=== PATIENT | male | born 2005 | race Caucasian/White ===

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

== ENCOUNTER 2023-05-11 13:30 | Emergency (ER) | payer MEDICAID, SELFPAY ==
[2023-05-11 13:33] VITALS: BP 155/85; PULSE 80; RESP 20; TEMP 37.1; O2SAT 95
--- NOTE | 2023-05-11 13:41 | ED.GENADUL_ITS ---
Discharge Plan Disposition Patient Disposition: Home Condition: Stable Discharge Details Clinical Impression: Internal derangement of right knee Primary Care Provider: Unknown,Unknown ED Provider: David Donovan Home Meds and New Rx's Prescriptions: Continued amoxicillin-pot clavulanate 875-125 mg tablet 1 tab PO BID Qty: 20 0RF Discharge Instructions Instructions: Knee Sprain (ED), Meniscus Tear (ED) Additional Instructions: You were seen in the emergency department for your chronic knee sprain with intermittent symptoms consistent with a possible meniscus tear. The definitive diagnosis for this is arthroscopy or MRI. You need to see an outpatient orthopedic office for this diagnosis. Please obtain an [id number]-[id number] knee brace from any pharmacy as they are much more comfortable and sturdy than our provided braces. Please use therapeutic dosing of Tylenol (acetamenophen) & Advil (ibuprofen) in an alternating fashion as follows: Take 1000mg of Tylenol every 6 hours without missing doses- that is 4 times per day. [place] in between the Tylenol dosings, take 400-600mg of Advil also on a 6 hour schedule, that is also 4 times per day. The daily maximum dosing of Tylenol is 4000mg, and the daily maximum dosing of Advil is 2400mg. This is safe to do for weeks. Please note that some common cold medications & prescription pain medications may contain acetamenophen and you need to read OTC drug labels and factor that in to maximum daily dosings. Please return to the emergency department for any signs of neurovascular compromise in the distal right leg. Referrals: [facility] [Provider Group] (possible meniscus tear, pain x1 year) Medical Decision Making This dictation utilizes [id number] dictation software and may contain unedited grammatical errors. 18 y/o M presents to ED today with a chief complaint of R knee intermittent pain for the past year. Onset and characteristics include mild to moderate pain at pes anserinus. Patient relevant medical history noncontributory, otherwise healthy. Family and social history: noncontributory. Pertinent exam findings / vital signs include R LE: No crepitus to the knee, no swelling or deformity or skin changes, no calf swelling, Homans negative, no varus valgus ligamentous laxity, Chidi positive on medial aspect suspicious for medial meniscus fracture, question laxity of anterior drawer test, nonantalgic gait, sensation intact distally.. Differential / pathologies of concern include Sprain, Internal Knee Injury, NOT NV Compromise or Fracture/Trauma. Diagnostic studies of: -none - XR would not be useful for suspected pathology. Interventions of: -recommend OTC knee brace for mobility issues. ED Course: No acute events while in ED, simple uncomplicated illness without systemic involvement. Findings not consistent with fracture or neurovascular compromise. Disposition of Internal Derangement of Right Knee. Assessment/Plan: Counseled the patient on a likely meniscus injury of his right knee and recommend he follow-up with orthopedics, recommend he ice it is much as he can and obtain an pvby-zqr-lflyymh knee brace as well as take therapeutic dosing of Tylenol and ibuprofen anytime it exacerbates. Patient verbalized understanding of the plan and return to ED criteria and engaged in shared decision making. Medical Records Medical records reviewed: Yes I reviewed the patient's medical records. HPI General Date/Time Provider Initiated Documentation: 05/11/23 13:40 . HPI Narrative: 18 year-old male presents to ED today by POV/ambulating with a chief complaint of intermittent R medial knee pain with onset for the past year. Quality described as intermittent aching, no radiation to numbness/tingling, swelling, deformity, ecchymosis, inabiity to ambulate. Severity is described as mild to moderate at times/10. Palliating factors include nothing specific attempted. Provoking factors include nothing specific. Events leading up to the incident/Associated Symptoms: Patient has not followed with orthopaedics. Patient not anticoagulated. Related Data Home Medications Medication Instructions Recorded Confirmed amoxicillin 875 mg-potassium 1 tab PO BID #20 tabs 09/14/19 09/18/19 clavulanate 125 mg tablet Previous Rx's Medication Instructions Recorded amoxicillin 875 mg-potassium 1 tab PO BID #20 tabs 09/14/19 clavulanate 125 mg tablet Allergies Allergy/AdvReac Type Severity Reaction Status Date / Time No Known Allergies Allergy Unverified 09/18/19 08:48 General Stated Complaint: Orthopedic WHITNEY: 4 Review of Systems All systems reviewed & are unremarkable except as noted in HPI and below PFSH All Active Problems (Updated 05/11/23 @ 13:46 by TEGAN Abdalla) Internal derangement of right knee (Acute) Adenitis (Acute) Need for HPV vaccine (Acute) needs HPV #2 Medical History (Updated 05/11/23 @ 13:46 by TEGAN Abdalla) BMI (body mass index), pediatric, 5% to less than 85% for age (04/02/16) Family History Mother Essential hypertension Sister Asthma Grandparent Neoplasm Asthma MGM Other No problems noted. Social History Smoking/Tobacco Use Status: Never Smoking risk assessment performed?: Yes Alcohol Intake: never Drug use: Occasionally Substance use type: marijuana Housing: apartment Current gender identity: male Do you feel safe in your relationship?: Yes Exam Narrative Exam Narrative: GENERAL APPEARANCE: Well-nourished, non-toxic, awake and alert, atraumatic, no acute distress. SKIN: Warm, pink, dry, intact, without rashes/lesions/ulcerations. HEAD: Normocephalic, atraumatic, normal hair distribution for gender/age. EYES: Pupils PERRLA, EOMs intact without nystagmus, normal conjunctiva, no exudates on lids/lashes. ENT: Nares patent, no circumoral cyanosis, no facial swelling NECK: Supple, trachea midline, painless cervical ROM. LUNGS/CHEST: Non-labored respirations, normal A/P diameter, symmetrical expansion, no chest wall deformity HEART (CV/PV): No peripheral edema, no JVD. ABDOMEN: Soft, non-distended, no guarding. MSK: Normal ROM, no swelling/deformity to bilateral UEs or LEs, moving all extremities without weakness, no cyanosis, spine midline without tenderness, normal curvature. R LE: No crepitus to the knee, no swelling or deformity or skin changes, no calf swelling, Homans negative, no varus valgus ligamentous laxity, Chidi positive on medial aspect suspicious for medial meniscus fracture, question laxity of anterior drawer test, nonantalgic gait, sensation intact distally. NEURO: Mental Status AAOx4 - alert to person, place, time, events No facial droop, no forehead involvement. Motor: No focal weakness - strength 5/5 in bilateral UEs and LEs, proximal and distal, symmetric. Sensory: sensation intact to light touch globally. Gait normal: patient ambulated without ataxia into ED room. PSYCH: euthymic, cooperative, pleasant, appropriate speech Course Vital Signs Vital signs: Vital Signs Temperature 37.1 C 05/11/23 13:33 Pulse 80 05/11/23 13:33 Respiratory Rate 20 05/11/23 13:33 Blood Pressure 155/85 H 05/11/23 13:33 Pulse Oximetry 95 05/11/23 13:33 Temperature 37.1 C 05/11/23 13:33 Pulse 80 05/11/23 13:33 Respiratory Rate 20 05/11/23 13:33 Respiratory Effort Normal, Non-Labored 05/11/23 13:36 Blood Pressure 155/85 H 05/11/23 13:33 Blood Pressure Position Sitting 05/11/23 13:33 Pulse Oximetry 95 05/11/23 13:33 Oxygen Delivery Method Room Air 05/11/23 13:33 Oxygen Flow Rate 0 05/11/23 13:33 Pain Level 0 05/11/23 13:33
== END 2023-05-11 13:59 | disposition home or self-care (01) ==
LOC: ER 13:50
PROVIDERS: Emergency Provider Physician Assistant
DX: M23.91 Unspecified internal derangement of right knee (principal)
CPT/HCPCS: 99282; 99283

== ENCOUNTER 2023-09-28 14:55 | Outpatient (CLI) | payer MEDICAID, SELFPAY ==
--- NOTE | 2023-09-28 09:30 | DI.RAD_ITS ---
Exam(s) XR KNEE RT 3V AP,LAT,LUPE EXAM: XR KNEE RT 3V AP,LAT,LUPE CLINICAL HISTORY: RIGHT KNEE PAIN. TECHNIQUE: 2D digital imaging was performed. Three views. COMPARISON: No exams were available for comparison FINDINGS: BONES: No acute fracture is present. No bony destructive lesion is seen. JOINTS: The joint spaces are maintained. The knee is normally aligned. No joint effusion is seen. SOFT TISSUE: Normal. IMPRESSION: Unremarkable radiographs of the right knee. DATA REPOSITORY: RADIATION DOSE DELIVERED:
== END 2023-09-28 14:56 | disposition home or self-care (01) ==
LOC: DIORS 14:56
PROVIDERS: Visit Provider Student in an Organized Health Care Education/Training Program
DX: M25.561 Pain in right knee (principal)
CPT/HCPCS: 73562

== ENCOUNTER → 2023-10-19 03:41 | Outpatient (CLI) | payer MEDICAID, SELFPAY ==
--- NOTE | 2023-10-19 10:45 | DI.MRI_ITS ---
Exam(s) MR LOWER JOINT RT WO EXAM: MR LOWER JOINT RT WO CLINICAL HISTORY: R KNEE PAIN,tear medial meniscus,[id number]. TECHNIQUE: Multiplanar multisequence MRI was performed. COMPARISON: CR XR KNEE RT 3V AP,LAT,LUPE from 09/28/2023 FINDINGS: BONES: There is no fracture or contusion pattern. JOINTS: Minimal joint effusion is present. Articular cartilage: Patellofemoral joint: Articular cartilage is unremarkable. Medial femoral tibial joint: Articular cartilage is unremarkable. Lateral femoral tibial joint: Articular cartilage is unremarkable. TENDONS: Extensor mechanism: Unremarkable. Medial retinaculum: Unremarkable. Lateral retinaculum: Unremarkable. Popliteus: Unremarkable. MUSCLES: Unremarkable. MENISCI: The medial meniscus is unremarkable. The lateral meniscus is unremarkable. SOFT TISSUES: Unremarkable. LIGAMENTS: Anterior Cruciate: Unremarkable. Posterior Cruciate: Unremarkable. Medial Collateral:Unremarkable. Lateral Collateral: Unremarkable. IMPRESSION: Unremarkable MRI of the right knee. No evidence of meniscal or ligament tear. DATA REPOSITORY:
== END ==
PROVIDERS: Visit Provider Student in an Organized Health Care Education/Training Program
DX: S83.241A Other tear of medial meniscus, current injury, right knee, initial encounter (principal)
CPT/HCPCS: 73721